=== PATIENT | female | born 1930 | race Caucasian/White ===

== ENCOUNTER 2016-05-22 13:38 | Inpatient (IN) | payer MEDICARE, BC ==
[~2016-05-22] VITALS: Ht 147.3 cm; Wt 55.8 kg
[~2016-05-22 13:38] MED LIST: AMOXICILLIN 8751 TAB PO; ARICEPT10 MG PO; ASPIRIN 32325 MG/TAB PO; ASPIRIN 81M81 MG/TA2 PO; ASPIRIN E.C.325 MG PO; BUTRANS20 MCG/HR TD; CENA K20 MEQ/15 PO; CITRACAL + D 311 TAB PO; CITRACAL PO; CLOPIDOGREL; COLACE 100100 MG/CAP PO; COZAAR 25MG25 MG/TAB PO; CRESTOR 10MG10 MG; CRESTOR 10MG10 MG PO; CRESTOR10 MG PO; FERROUS SU325 MG/TAB PO; FISH OIL CONC1000 MG PO; FLAGYL ER750 MG PO; FOLIC ACID PO; FORADIL IH; HALDOL 5MG/ML5 MG/ML IM; K-DUR 10 MEQ T10 MEQ PO; LEXAPRO 10MG10 MG PO; MAXAIR0.2 MG/ACT IH; MEDI-FIRST ASP325 MG PO; METAMUCIL1 PDR PO; MVI PO; NEXIUM 40MG40 MG PO; NEXIUM40 MG PO; NITROQUICK0.4 MG SL; NITROSTAT0.4 MG/TAB SL; NORCO 325 MG-51 TAB PO; REMERON 15M15 MG/TA1 PO; RESTORIL 1515 MG/CAP PO; RT ALBUTER2.5 MG/0.5 IH; SEREVENT; SYNTHROID0.05 MG/TA PO; TEMAZEPAM15 MG PO; TOPROL XL 50MG50 MG PO; TOPROL XL50 MG PO; VITAMIN C500 MG PO; [UNRECOGNIZED DRUG - OTHER] PO; maxair PO; mvi
[2016-05-22 14:59] LABS: PH 5 (5-8); URINE APPEARANCE Cloudy; URINE BACTERIA Rare /hpf; URINE BILIRUBIN Negative (NEGATIVE); URINE BLOOD Negative (NEGATIVE); URINE COLOR Yellow; URINE GLUCOSE Negative (NEGATIVE); URINE KETONE 1+ (NEGATIVE); URINE RBC 0-2 /hpf; URINE UROBILINOGEN Negative (NEGATIVE); URINE WBC 0-2 /hpf
[2016-05-22 16:31] LABS: BASO % 0.3 % (0.0-2.0); GRAN # 9.3 (1.4-6.5); GRAN % 84.3 % (42.2-75.2); LYMPH % 8.8 % (20.0-51.0); MEAN CELL VOLUME 92 fl (80.0-100.0); MEAN CORPUSCULAR HGB CONC 32 g/dl (33.0-37.0); MEAN PLATELET VOLUME 9.1 fl (7.4-10.4); MONO # 0.7 (0.1-0.6); MONO % 5.9 % (1.7-9.3); PLATELET COUNT 254 K/mm3 (130-400); RED BLOOD COUNT 3.61 M/mm3 (4.10-5.30); REDCELL DISTRIBUTION WIDTH-CV 13.5 % (11.5-14.5); WHITE BLOOD COUNT 11.1 K/mm3 (4.8-10.8)
[2016-05-22 16:39] LABS: HEMATOCRIT 33.1 % (37.0-47.0); HEMOGLOBIN 10.5 g/dl (12.5-16.0); MEAN CORPUSCULAR HEMOGLOBIN 29 pg (27.0-31.0)
[2016-05-22 16:49] LABS: ADJUSTED CALCIUM 8.6 mg/dL (8.4-10.2); ALBUMIN 3.7 gm/dL (3.5-5.0); BILIRUBIN,TOTAL 0.8 mg/dL (0.0-1.0); C-REACTIVE PROTEIN 1.8 mg/dL (0.0-0.9); CALCIUM 8.4 mg/dL (8.4-10.2); CREATININE, serum 2.52 mg/dL (0.52-1.25); MAGNESIUM 2.1 mg/dL (1.6-2.3); POTASSIUM 4.5 mmol/L (3.4-5.0); TOTAL PROTEIN 6.8 gm/dL (6.4-8.2)
[2016-05-22 20:39] VITALS: BP 108/36; PULSE 78; TEMP 98.4
[2016-05-22 21:36] VITALS: BP 108/38; PULSE 84; TEMP 98.5
[2016-05-23 01:08] VITALS: BP 122/34; PULSE 78; TEMP 97.5
[2016-05-23 08:22] LABS: BASO % 0.5 % (0.0-2.0); EOS # 0.1 (0.0-0.7); EOS % 0.8 % (0-4.0); GRAN % 77.1 % (42.2-75.2); LYMPH # 1.1 (1.2-3.4); LYMPH % 14.4 % (20.0-51.0); MEAN CELL VOLUME 91 fl (80.0-100.0); MEAN CORPUSCULAR HGB CONC 32 g/dl (33.0-37.0); MEAN PLATELET VOLUME 9.8 fl (7.4-10.4); MONO # 0.5 (0.1-0.6); MONO % 6.7 % (1.7-9.3); PLATELET COUNT 278 K/mm3 (130-400); RED BLOOD COUNT 3.53 M/mm3 (4.10-5.30); WHITE BLOOD COUNT 7.8 K/mm3 (4.8-10.8)
[2016-05-23 08:35] LABS: HEMATOCRIT 32.2 % (37.0-47.0); HEMOGLOBIN 10.3 g/dl (12.5-16.0); MEAN CORPUSCULAR HEMOGLOBIN 29 pg (27.0-31.0)
[2016-05-23 08:57] LABS: CALCIUM 7.8 mg/dL (8.4-10.2); CREATININE, serum 1.99 mg/dL (0.52-1.25)
[2016-05-23 09:18] VITALS: BP 131/44; PULSE 87; TEMP 97.5
[2016-05-23 14:30] VITALS: BP 159/63; PULSE 99
== END 2016-05-23 15:58 | disposition home or self-care (01) | DRG 684 ==
LOC: COL.ER 13:38 → SURG 18:21
PROVIDERS: Emergency Medicine; Family Medicine
DX: N17.9 Acute kidney failure, unspecified (principal); I12.9 Hypertensive chronic kidney disease with stage 1 through stage 4 chronic kidney disease, or unspecified chronic kidney disease; N18.4 Chronic kidney disease, stage 4 (severe); F03.90 Unspecified dementia, unspecified severity, without behavioral disturbance, psychotic disturbance, mood disturbance, and anxiety; Z93.3 Colostomy status; E86.0 Dehydration
CPT/HCPCS: OP; 99222-AI; J1644; J7030

== ENCOUNTER 2017-04-18 06:54 | Day surgery (SDC) | payer MEDICARE, BC ==
[2008-11-20 09:02] VITALS: BP 129/66
[~2017-04-18] VITALS: Ht 147.3 cm; Wt 52.2 kg
[2017-04-18 07:50] VITALS: BP 163/91; PULSE 88; TEMP 98
[2017-04-18] MEDS ORDERED: NORCO 325 MG-51 TAB PO ×2 (08:03)
[2017-04-18] MEDS ORDERED: NYSTATIN CREAM15 GM TP (08:12)
[2017-04-18] MEDS ORDERED: TRIAMCINOLONE A15 G3 TP (08:13)
[2017-04-18 10:02] VITALS: BP 125/55; PULSE 78; TEMP 97.7
[2017-04-18 10:15] VITALS: BP 143/59; PULSE 70
[2017-04-18 10:30] VITALS: BP 147/49; PULSE 64
[2017-04-18 10:45] VITALS: BP 153/48; PULSE 53
[2017-04-18 11:00] VITALS: BP 143/53; PULSE 60
== END 2017-04-18 12:15 | disposition home or self-care (01) ==
LOC: SDCO 06:54
DX: C44.629 Squamous cell carcinoma of skin of left upper limb, including shoulder (principal); I10 Essential (primary) hypertension; M19.90 Unspecified osteoarthritis, unspecified site; J45.909 Unspecified asthma, uncomplicated; I25.10 Atherosclerotic heart disease of native coronary artery without angina pectoris; K21.9 Gastro-esophageal reflux disease without esophagitis; E78.00 Pure hypercholesterolemia, unspecified; E03.9 Hypothyroidism, unspecified; Z90.49 Acquired absence of other specified parts of digestive tract; Z96.653 Presence of artificial knee joint, bilateral; Z95.1 Presence of aortocoronary bypass graft; Z82.49 Family history of ischemic heart disease and other diseases of the circulatory system; Z82.3 Family history of stroke
CPT/HCPCS: J0690; J2704; J3010; J7120

== ENCOUNTER 2018-01-21 08:56 | Emergency (ER) | payer MEDICARE, BC ==
[2008-11-20 09:02] VITALS: BP 129/66
[~2018-01-21] VITALS: Ht 149.9 cm; Wt 52.3 kg
[~2018-01-21 08:56] MED LIST changes: +NYSTATIN CREAM15 GM TP; +TRIAMCINOLONE A15 G3 TP
[2018-01-21 09:01] VITALS: TEMP 99.2
[2018-01-21] MEDS ORDERED: ZYPREXA 5MG5 MG PO (09:25)
[2018-01-21 10:15] VITALS: BP 120/46; PULSE 80
[2018-01-23] MEDS ORDERED: K-TAB10 PO (14:55)
== END 2018-01-21 10:16 | disposition home or self-care (01) ==
LOC: COL.ER 08:56
DX: S00.83XA Contusion of other part of head, initial encounter (principal); E03.9 Hypothyroidism, unspecified; I10 Essential (primary) hypertension; I25.10 Atherosclerotic heart disease of native coronary artery without angina pectoris; Z79.82 Long term (current) use of aspirin; F03.90 Unspecified dementia, unspecified severity, without behavioral disturbance, psychotic disturbance, mood disturbance, and anxiety; W19.XXXA Unspecified fall, initial encounter; Y92.129 Unspecified place in nursing home as the place of occurrence of the external cause